=== PATIENT | male | born 1955 | race Caucasian/White ===

== ENCOUNTER 2016-11-13 18:17 | Emergency (ER) | payer MEDICARE ==
[~2016-11-13 18:17] MED LIST: ALPRAZOLAM0.5 M2 PO; ARICEPT10 M2 PO; ASPIRIN325 MG PO; COLCRYS0.6 M1 PO; DYRENIUM100 MG PO; FOLIC ACID1 M1 PO; LEXAPRO10 M1 PO; LOPRESSOR PO; LYRICA150 MG/CAP PO; METOPROLOL TAR100 M2 PO; MULTIVITAMINS1 EAC6 PO; NORVASC10 M1 PO; NORVASC10 M2 PO; OMEPRAZOLE40 M2 PO; THIAMINE HCL100 M2 PO; TRIAMTERENE-HC1 EAC3 PO; TRIAMTERENE-HCT1 CA PO; TYLENOL325 M2 PO
[2016-11-13] MEDS ORDERED: NAMENDA5 M1 PO (18:52)
== END 2016-11-13 21:53 ==
LOC: EDMED 18:17
PROC: 2W3AX1Z Immobilization of Right Upper Arm using Splint (ICD-10-PCS; principal; 2016-11-13)
DX: S42.401A Unspecified fracture of lower end of right humerus, initial encounter for closed fracture (principal); S63.630A Sprain of interphalangeal joint of right index finger, initial encounter; I10 Essential (primary) hypertension; Z98.890 Other specified postprocedural states; Z87.891 Personal history of nicotine dependence; Z79.899 Other long term (current) drug therapy; X58.XXXA Exposure to other specified factors, initial encounter